=== PATIENT | female | born 1965 | race Caucasian/White ===

== ENCOUNTER → 2020-07-26 15:48 | Outpatient (CLI) | payer OTHER, MEDICAID, SELFPAY ==
[2020-07-26 17:02] LABS: COVID19 -Nasal RAPID Negative (Negative)
[2020-07-26 18:45] LABS: Influenza A - CEPHEID Flu A NEGATIVE (NEGATIVE); Influenza B - CEPHEID Flu B NEGATIVE (NEGATIVE)
== END ==
PROVIDERS: Visit Provider Student in an Organized Health Care Education/Training Program
DX: R05 Cough; R52 Pain, unspecified; Z20.822 Contact with and (suspected) exposure to COVID-19
CPT/HCPCS: 87502; 87635

== ENCOUNTER → 2020-08-01 13:22 | Outpatient (CLI) | payer OTHER, MEDICAID, SELFPAY ==
[2020-08-01 14:22] LABS: COVID19 -Nasal RAPID Negative (Negative)
== END ==
PROVIDERS: Visit Provider Student in an Organized Health Care Education/Training Program
DX: Z20.822 Contact with and (suspected) exposure to COVID-19 (principal)
CPT/HCPCS: 87635

== ENCOUNTER 2022-05-21 06:33 | Emergency (ER) | payer OTHER, MEDICAID, SELFPAY ==
[2022-05-21] VITALS (10 sets, daily range): BP systolic 124–198; BP diastolic 58–89; PULSE 55–77; RESP 15; TEMP 36.2; O2SAT 93–98; BMI 24.1
--- NOTE | 2022-05-21 06:44 | DI.CT.S_ITS ---
PROCEDURE: CT KIDNEY URETER BLADDER (KUB) INDICATIONS: acute onset severe L flank pain TECHNIQUE: Axial sections were acquired from the lung bases to the pubic symphysis. Coronal and sagittal reformats were performed. For radiation dose reduction, the following was used: automated exposure control, adjustment of mA and/or kV according to patient size. COMPARISON: None. FINDINGS: Image quality: Excellent. Lung bases: Unremarkable. Heart: No significant findings. URINARY: Right Kidney: No definite stones. No hydronephrosis. Right Ureter: No hydroureter. Left Kidney: Mild hydronephrosis. Two additional punctate nonobstructing kidney stones. Left Ureter: Obstructing calculus at the left UVJ measuring 0.2 cm, (2/65). Mild hydroureter. Bladder: Decompressed. No stones. ABDOMEN: Liver: Unremarkable. Gallbladder: Not distended. Biliary ducts: Unremarkable. Pancreas: Unremarkable. Spleen: Unremarkable. Adrenal Glands: Unremarkable. Stomach and Bowel: Gastric sleeve. No small bowel obstruction. Diverticulosis. The appendix is not identified. Peritoneum: No abnormal intraperitoneal fluid. No free air. Ventral Wall: No hernia. Abdominal Nodes: No enlarged retroperitoneal or mesenteric lymph nodes. Vessels: Aorta and inferior vena cava are normal in size. Mild atherosclerotic calcifications. PELVIS: Pelvic Organs: Possible uterine fibroid. Pelvic Nodes: Unremarkable. Miscellaneous: No inguinal hernias are seen. Bones: No suspicious lesion. Anterolisthesis of L5 on S1 measuring 0.6 cm. IMPRESSION: 1. Obstructing calculus at the left UVJ measuring 0.2 cm. Mild left hydroureteronephrosis. 2. Additional small nonobstructing left kidney stones x2. This report is concordant with the overnight preliminary interpretation. Dictated by: Moshe Cerda M.D. on 05/21/2022 at 8:06 Approved by: Moshe Cerda M.D. on 05/21/2022 at 8:14
--- NOTE | 2022-05-21 06:44 | ED_ITS ---
HPI - General Adult <Katelyn Trujillo MD - Last Filed: 07/08/22 05:32> General Chief complaint: Abdominal Pain Stated complaint: abd pain left side Time Seen by Provider: 05/21/22 06:38 Source: patient and family Mode of arrival: Wheelchair History of Present Illness HPI narrative: 57-year-old woman with no significant chronic medical problems nor taking any prescribed medications and a history of a single kidney stone 25 years ago presents with acute onset severe left flank pain. She awoke this morning at 5 :15 a.m. and noticed some dull pain to the area that rapidly progressed to 7- 8/10 pain that is severe enough it causes emesis and she is having trouble sitting still secondary to pain. She describes no recent fevers, cough, chills. No headaches, rashes, chest pain, palpitations. Related Data Previous Rx's Medication Instructions Recorded hydrocodone 5 mg-acetaminophen 325 1 tab PO Q4-6H PRN pain #10 tabs 05/21/22 mg tablet ondansetron 4 mg disintegrating 4 mg PO Q6H PRN nausea and 05/21/22 tablet vomiting #10 tabs Allergies Allergy/AdvReac Type Severity Reaction Status Date / Time No Known Drug Allergies Allergy Unverified 08/01/20 13:13 Review of Systems <Katelyn Trujillo MD - Last Filed: 07/08/22 05:32> Review of Systems Narrative: Remainder of complete review of systems is otherwise unremarkable except for that included in the HPI. Patient History <Katelyn Trujillo MD - Last Filed: 07/08/22 05:32> Medical History (Updated 06/28/22 @ 00:00 by ) Kidney stone Social History Smoking Status: Never smoker Smoking Status: Never smoker alcohol intake frequency: a few times a month Substance Use Type: does not use Exam <Katelyn Trujillo MD - Last Filed: 07/08/22 05:32> Initial Vital Signs Initial Vital Signs: Vital Signs Temperature 97.1 F L 05/21/22 06:42 Pulse Rate 77 05/21/22 06:42 Respiratory Rate 15 05/21/22 06:42 Blood Pressure 198/89 H 05/21/22 06:42 Pulse Oximetry 98 05/21/22 06:42 Oxygen Delivery Method Room Air 05/21/22 06:42 General: In significant pain, trying to be cooperative however having difficulty sitting still secondary to pain HEENT: Moist mucous membranes, normal sclera with reactive pupils, Respiratory: Lungs are clear to auscultation, no wheezing no rales no rhonchi. Full and symmetrical air movement Cardiac: Tachycardic, Regular rate and rhythm no murmurs no bruits Abdomen: Soft, nontender, non reproducible left flank pain. Skin: Pale and diaphoretic secondary to pain Neurologic: Grossly neurologically intact with no obvious asymmetries or abnormalities Extremities: No trauma, well perfused Psych: Cooperative, appropriate insight and affect <Tra Sanchez DO - Last Filed: 05/21/22 19:45> Initial Vital Signs Initial Vital Signs: Vital Signs Temperature 97.1 F L 05/21/22 06:42 Pulse Rate 77 05/21/22 06:42 Respiratory Rate 15 05/21/22 06:42 Blood Pressure 198/89 H 05/21/22 06:42 Pulse Oximetry 98 05/21/22 06:42 Oxygen Delivery Method Room Air 05/21/22 06:42 Course <Katelyn Trujillo MD - Last Filed: 07/08/22 05:32> Orders Ordered: Discontinued Medications Hydromorphone HCl (Hydromorphone 0.5 Mg Inj) 0.5 mg IV Q15MIN PRN PRN Reason: Pain, Last Admin: 05/21/22 07:03 Dose: 0.5 mg Documented By: NAT Sodium Chloride (Normal Saline 0.9%) 1,000 mls @ 1,000 mls/hr IV BOLUS ONE Stop: 05/21/22 07:42 Last Infusion: 05/21/22 08:18 Dose: 0 mls/hr Documented By: Admin: 05/21/22 07:00 Dose: 1,000 mls/hr Documented By: NAT Ketorolac Tromethamine (Ketorolac 30 Mg/Ml Vial) 15 mg IV NOW ONE Stop: 05/21/22 06:44 Last Admin: 05/21/22 06:48 Dose: 15 mg Documented By: TIGRE Ondansetron HCl (Ondansetron 4 Mg/2 Ml Inj) 4 mg IV NOW ONE Stop: 05/21/22 06:44 Last Admin: 05/21/22 06:48 Dose: 4 mg Documented By: TIGRE Vital Signs Vital signs: Vital Signs - 8 hr 05/21/22 06:42 05/21/22 07:19 05/21/22 07:30 Temperature 97.1 F L Pulse Rate 77 57 L 59 L Respiratory Rate 15 Blood Pressure 198/89 H Pulse Oximetry 98 94 95 Oxygen Delivery Method Room Air 05/21/22 07:36 05/21/22 07:36 05/21/22 08:00 Temperature Pulse Rate 67 Respiratory Rate Blood Pressure 134/67 135/73 Pulse Oximetry 96 Oxygen Delivery Method 05/21/22 08:00 Temperature Pulse Rate 63 Respiratory Rate Blood Pressure Pulse Oximetry 93 Oxygen Delivery Method <Tra Sanchez DO - Last Filed: 05/21/22 19:45> Orders Ordered: Discontinued Medications Hydromorphone HCl (Hydromorphone 0.5 Mg Inj) 0.5 mg IV Q15MIN PRN PRN Reason: Pain, Last Admin: 05/21/22 07:03 Dose: 0.5 mg Documented By: NAT Sodium Chloride (Normal Saline 0.9%) 1,000 mls @ 1,000 mls/hr IV BOLUS ONE Stop: 05/21/22 07:42 Last Infusion: 05/21/22 08:18 Dose: 0 mls/hr Documented By: Admin: 05/21/22 07:00 Dose: 1,000 mls/hr Documented By: NAT Ketorolac Tromethamine (Ketorolac 30 Mg/Ml Vial) 15 mg IV NOW ONE Stop: 05/21/22 06:44 Last Admin: 05/21/22 06:48 Dose: 15 mg Documented By: TIGRE Ondansetron HCl (Ondansetron 4 Mg/2 Ml Inj) 4 mg IV NOW ONE Stop: 05/21/22 06:44 Last Admin: 05/21/22 06:48 Dose: 4 mg Documented By: TIGRE Vital Signs Vital signs: Vital Signs - 8 hr 05/21/22 06:42 05/21/22 07:19 05/21/22 07:30 Temperature 97.1 F L Pulse Rate 77 57 L 59 L Respiratory Rate 15 Blood Pressure 198/89 H Pulse Oximetry 98 94 95 Oxygen Delivery Method Room Air 05/21/22 07:36 05/21/22 07:36 05/21/22 08:00 Temperature Pulse Rate 67 Respiratory Rate Blood Pressure 134/67 135/73 Pulse Oximetry 96 Oxygen Delivery Method 05/21/22 08:00 Temperature Pulse Rate 63 Respiratory Rate Blood Pressure Pulse Oximetry 93 Oxygen Delivery Method Medical Decision Making <Katelyn Trujillo MD - Last Filed: 07/08/22 05:32> Lab Data 05/21/22 06:50 05/21/22 06:50 Labs: Lab Results 05/21/22 05/21/22 05/21/22 Range/Units 06:50 06:50 08:24 WBC 5.6 (4.5-11.0) X10^3/uL RBC 4.24 (4.0-5.2) X10^6/uL Hgb 13.5 (12.0-16.0) g/dL Hct 40.4 (36-46) % MCV 95.2 (80-100) fL MCH 31.8 (26-34) PG MCHC 33.4 (30-36) % RDW 12.9 (11.6-14.8) % Plt Count 299 (150-400) X10^3/uL Neut % (Auto) 40.2 L (50-75) % Lymph % (Auto) 40.4 H (25-40) % [place] % (Auto) 10.6 (3-14) % Eos % (Auto) 8.0 H (2-4) % Baso % (Auto) 0.8 (0-2) % Neut # (Auto) 2200 (8275-1324) /uL Lymph # (Auto) 2200 (6831-7951) /uL [place] # (Auto) 600 (0-900) /uL Eos # (Auto) 400 (0-450) /uL Baso # (Auto) 0 (0-100) /uL Sodium 140 (137-145) mmol/L Potassium 3.9 (3.4-5.1) mmol/L Chloride 105 (98-107) mmol/L Carbon Dioxide 26 (22-32) mmol/L BUN 16 (7-17) mg/dL Creatinine 0.61 (0.52-1.04) mg/dL Estimated GFR > 60 (>60) mL/min BUN/Creatinine Ratio 26.2 H (6-22) Glucose 115 H (70-100) mg/dL Calcium 9.1 (8.4-10.2) mg/dL Total Bilirubin 0.5 (0.2-1.3) mg/dL AST 38 H (14-36) IU/L ALT 37 H (<35) IU/L Alkaline Phosphatase 111 (38-126) U/L Total Protein 7.7 (6.3-8.2) g/dL Albumin 4.4 (3.5-5.0) g/dL Globulin 3.3 (1.7-4.1) g/dL Albumin/Globulin Ratio 1.3 (1.0-2.8) Urine RBC >100/hpf H (0-5/HPF) Urine WBC 1-5/hpf (0-5/HPF) Ur Squamous Epith Cells 5-10 /hpf H (0-5/HPF) Urine Bacteria Many (>30) H (None) Ur Culture Indicated? Specimen cultured Urine Dip Bedside Urine Glucose Negative Bedside Urine Bilirubin - Negative Bedside Urine Ketone - Negative Urine Specific [place] 1.025 Bedside Urine Occult Blood +++ Bedside Urine pH 6.0 Bedside Urine Protein + 30 Bedside Urine Urobilinogen - Negative Bedside Urine Nitrite - Negative Bedside Urine Leukocytes +/- 15 Esterase Point of care testing: Urine Dip Bedside Urine Glucose Negative Bedside Urine Bilirubin - Negative Bedside Urine Ketone - Negative Urine Specific [place] 1.025 Bedside Urine Occult Blood +++ Bedside Urine pH 6.0 Bedside Urine Protein + 30 Bedside Urine Urobilinogen - Negative Bedside Urine Nitrite - Negative Bedside Urine Leukocytes +/- 15 Esterase MDM Narrative Medical decision making narrative: CC: Acute onset severe left flank pain. New problem, uncertain prognosis potential for severe systemic symptoms Corroborating data: Data collected from: patient, Differential considered: Kidney stone, pyelonephritis, urinary tract infection, acute diverticulitis, bowel obstruction, bowel perforation, Exam documented above, pertinent findings include: Severe left flank pain that is not reproducible with palpation Lab Test results independently reviewed as above. Pertinent findings: Imaging studies independently reviewed: Consultations: Treatments: IV fluid, parenteral Zofran, Toradol Re-evaluations: Discussion: Disposition: see below, along with detailed discharge instructions that have been reviewed with patient as well as indications for ED re-evaluation and additional outpatient follow up <Tra Sanchez DO - Last Filed: 05/21/22 19:45> Lab Data Labs: Lab Results 0205/21/22 05/21/22 Range/Units 06:50 06:50 08:24 WBC 5.6 (4.5-11.0) X10^3/uL RBC 4.24 (4.0-5.2) X10^6/uL Hgb 13.5 (12.0-16.0) g/dL Hct 40.4 (36-46) % MCV 95.2 (80-100) fL MCH 31.8 (26-34) PG MCHC 33.4 (30-36) % RDW 12.9 (11.6-14.8) % Plt Count 299 (150-400) X10^3/uL Neut % (Auto) 40.2 L (50-75) % Lymph % (Auto) 40.4 H (25-40) % [place] % (Auto) 10.6 (3-14) % Eos % (Auto) 8.0 H (2-4) % Baso % (Auto) 0.8 (0-2) % Neut # (Auto) 2200 (2669-6174) /uL Lymph # (Auto) 2200 (0492-6182) /uL [place] # (Auto) 600 (0-900) /uL Eos # (Auto) 400 (0-450) /uL Baso # (Auto) 0 (0-100) /uL Sodium 140 (137-145) mmol/L Potassium 3.9 (3.4-5.1) mmol/L Chloride 105 (98-107) mmol/L Carbon Dioxide 26 (22-32) mmol/L BUN 16 (7-17) mg/dL Creatinine 0.61 (0.52-1.04) mg/dL Estimated GFR > 60 (>60) mL/min BUN/Creatinine Ratio 26.2 H (6-22) Glucose 115 H (70-100) mg/dL Calcium 9.1 (8.4-10.2) mg/dL Total Bilirubin 0.5 (0.2-1.3) mg/dL AST 38 H (14-36) IU/L ALT 37 H (<35) IU/L Alkaline Phosphatase 111 (38-126) U/L Total Protein 7.7 (6.3-8.2) g/dL Albumin 4.4 (3.5-5.0) g/dL Globulin 3.3 (1.7-4.1) g/dL Albumin/Globulin Ratio 1.3 (1.0-2.8) Urine RBC >100/hpf H (0-5/HPF) Urine WBC 1-5/hpf (0-5/HPF) Ur Squamous Epith Cells 5-10 /hpf H (0-5/HPF) Urine Bacteria Many (>30) H (None) Ur Culture Indicated? Specimen cultured Urine Dip Bedside Urine Glucose Negative Bedside Urine Bilirubin - Negative Bedside Urine Ketone - Negative Urine Specific [place] 1.025 Bedside Urine Occult Blood +++ Bedside Urine pH 6.0 Bedside Urine Protein + 30 Bedside Urine Urobilinogen - Negative Bedside Urine Nitrite - Negative Bedside Urine Leukocytes +/- 15 Esterase Point of care testing: Urine Dip Bedside Urine Glucose Negative Bedside Urine Bilirubin - Negative Bedside Urine Ketone - Negative Urine Specific [place] 1.025 Bedside Urine Occult Blood +++ Bedside Urine pH 6.0 Bedside Urine Protein + 30 Bedside Urine Urobilinogen - Negative Bedside Urine Nitrite - Negative Bedside Urine Leukocytes +/- [address] KUB: Radiologist's Impression: [place] [address] CT Scan Report Signed Patient: Nasreen Mora MR#: [id number] : 1965 Acct:[id number] Age/Sex: 57 / F Date of Service: 05/21/22 Loc: ED Accession Number: [id number] ?? Procedure: CT kidney ureter bladder (KUB) Ordering Provider: Katelyn Trujillo MD PROCEDURE:? CT KIDNEY URETER BLADDER (KUB) ? INDICATIONS:? acute onset severe L flank pain ? TECHNIQUE:? Axial sections were acquired from the lung bases to the pubic symphysis.? Coronal and sagittal reformats were performed.? For radiation dose reduction, the following was used: ?automated exposure control, adjustment of mA and/or kV according to patient size.? ? COMPARISON:? None. ? FINDINGS:? Image quality:? Excellent.? ? Lung bases:? Unremarkable.? ? Heart:? No significant findings. ? URINARY: Right Kidney: ? No definite stones.? No hydronephrosis.? Right Ureter:? No hydroureter.? ? Left Kidney:? Mild hydronephrosis.? Two additional punctate nonobstructing ki dney stones. ? Left Ureter:? Obstructing calculus at the left UVJ measuring 0.2 cm, ().? Mild hydroureter.? ? Bladder:? Decompressed.? No stones. ? ? ? ABDOMEN: Liver:? Unremarkable.? ? Gallbladder:? Not distended.? ? Biliary ducts:? Unremarkable.? ? Pancreas:? Unremarkable.? ? Spleen:? Unremarkable.? ? Adrenal Glands:? Unremarkable.? ? ? Stomach and Bowel:? Gastric sleeve.? No small bowel obstruction.? Diverticulosis.? The appendix is not identified. Peritoneum:? No abnormal intraperitoneal fluid.? No free air.? ? Ventral Wall: ? No hernia.? Abdominal Nodes:? No enlarged retroperitoneal or mesenteric lymph nodes.? Vessels:? Aorta and inferior vena cava are normal in size.? Mild atherosclerotic calcifications.? ? PELVIS: Pelvic Organs:? Possible uterine fibroid.? ? Pelvic Nodes: Unremarkable. Miscellaneous: No inguinal hernias are seen. ? ? ? Bones:? No suspicious lesion.? Anterolisthesis of L5 on S1 measuring 0.6 cm. ? IMPRESSION:? 1. Obstructing calculus at the left UVJ measuring 0.2 cm.? Mild left hydroureteronephrosis.? ? 2. Additional small nonobstructing left kidney stones x2. ? ? This report is concordant with the overnight preliminary interpretation. ? Dictated by: Moshe Cerda M.D. on 05/21/2022 at 8:06 ? ? Approved by: Moshe Cerda M.D. on 05/21/2022 at 8:14?? MDM Narrative Medical decision making narrative: CC: Acute onset severe left flank pain. New problem, uncertain prognosis potential for severe systemic symptoms Corroborating data: Data collected from: patient, Differential considered: Kidney stone, pyelonephritis, urinary tract infection, acute diverticulitis, bowel obstruction, bowel perforation, Exam documented above, pertinent findings include: Severe left flank pain that is not reproducible with palpation Lab Test results independently reviewed as above. Pertinent findings: Imaging studies independently reviewed: Consultations: Treatments: IV fluid, parenteral Zofran, Toradol Re-evaluations: Discussion: Disposition: see below, along with detailed discharge instructions that have been reviewed with patient as well as indications for ED re-evaluation and additional outpatient follow up Dr sanchez: Received turned over reviewed patient's history and physical exam. Assumed care patient. Patient was seen by social work. A plan was in place for follow-up and discharged home. I did refill her gabapentin. Patient will return for worsening symptoms. Discharge Plan Departure Patient Disposition: Home Clinical Impression: Renal colic on left side Instructions: Kidney Stones -- Adult Activity Restrictions/Additional Instructions: Recommend that you stay hydrated. Use the pain medicine and nausea medicine as needed. Return to the emergency department for any new or worsening symptoms. Prescriptions: New ondansetron 4 mg tablet,disintegrating 4 mg PO Q6H PRN (Reason: nausea and vomiting) Qty: 10 0RF hydrocodone-acetaminophen 5-325 mg tablet 1 tab PO Q4-6H PRN (Reason: pain) Qty: 10 0RF Referrals: Miscellaneous,Doctor, MD [Primary Care Provider] - Stand Alone Forms: Patient Portal/API
[2022-05-21] MEDS: ONDANSETRON 4 MG/2 ML INJ IV (06:48)
[2022-05-21] MEDS: KETOROLAC 30 MG/ML VIAL 15 MG IV (06:48)
[2022-05-21] MEDS: SODIUM CHLORIDE 0.9% 1,000 ML 1000 ML IV (07:00)
[2022-05-21] MEDS: HYDROMORPHONE 0.5 MG INJ IV (07:03)
[2022-05-21 07:04] LABS: Add Manual Diff / Slide Review NO; Basophils Absolute Auto 0 /uL (0-100); Basophils Percent Auto 0.8 % (0-2); Eosinophils Absolute Auto 400 /uL (0-450); Hematocrit 40.4 % (36-46); Hemoglobin 13.5 g/dL (12.0-16.0); Lymphocytes Absolute Auto 2200 /uL (1100-4500); Lymphocytes Percent Auto 40.4 % (25-40); Mean Corpuscular HGB Conc 33.4 % (30-36); Mean Corpuscular Hemoglobin 31.8 PG (26-34); Mean Corpuscular Volume 95.2 fL (80-100); Monocytes Absolute Auto 600 /uL (0-900); Monocytes Percent Auto 10.6 % (3-14); Neutrophils Absolute Auto 2200 /uL (1500-7000); Neutrophils Percent Auto 40.2 % (50-75); Platelet Count 299 X10^3/uL (150-400); Red Blood Cell Count 4.24 X10^6/uL (4.0-5.2); Red Cell Distribution Width 12.9 % (11.6-14.8); White Blood Cell Count 5.6 X10^3/uL (4.5-11.0)
[2022-05-21 07:11] LABS: Alanine Aminotransferase 37 IU/L (<35); Albumin 4.4 g/dL (3.5-5.0); Albumin Globulin Ratio 1.3 (1.0-2.8); Alkaline Phosphatase 111 U/L (38-126); Aspartate Aminotransferase 38 IU/L (14-36); BUN Creatinine Ratio 26.2 (6-22); Bilirubin Total 0.5 mg/dL (0.2-1.3); Blood Urea Nitrogen 16 mg/dL (7-17); Calcium 9.1 mg/dL (8.4-10.2); Carbon Dioxide 26 mmol/L (22-32); Chloride 105 mmol/L (98-107); Estimated Glomerular Filt Rate > 60 mL/min (>60); Globulin 3.3 g/dL (1.7-4.1); Glucose 115 mg/dL (70-100); HEMOLYSIS < 15 (0-50); Potassium 3.9 mmol/L (3.4-5.1); Sodium 140 mmol/L (137-145); Total Protein 7.7 g/dL (6.3-8.2)
[2022-05-21 09:36] LABS: Bacteria Urine Many (>30); RBC Urine >100/HPF (0-5/HPF); Squamous Epithelial Cell Urine 5-10 /HPF (0-5/HPF); WBC Urine 1-5/HPF (0-5/HPF)
[2022-05-21 09:37] LABS: Culture Indicated Urine Specimen Cultured
== END 2022-05-21 10:11 | disposition home or self-care (01) ==
PROVIDERS: Emergency Medicine; Emergency Provider Emergency Medicine
DX: N23 Unspecified renal colic (principal)
CPT/HCPCS: 74176; 80053; 81003; 81015; 85025; 87086; 96361; 96374; 96375; 99283; 99284; J1170; J1885; J2405

== ENCOUNTER 2022-06-12 19:50 | Emergency (ER) | payer OTHER, MEDICAID, SELFPAY ==
[2022-06-12 20:05] VITALS: BP 174/77; PULSE 108; RESP 18; TEMP 37.7; O2SAT 97; BMI 25.2
[2022-06-12 20:29] LABS: COVID19 -Nasal RAPID POSITIVE (Negative)
--- NOTE | 2022-06-12 21:03 | DI.RAD.S_ITS ---
PROCEDURE: XR CHEST 2V INDICATIONS: covid +, fever, cough TECHNIQUE: 2 views of the chest were acquired. COMPARISON: None. FINDINGS: Surgical changes and devices: None. Lungs and pleura: Lungs are clear. No pleural effusions or pneumothorax. Mediastinum: Mediastinal contours are normal. Heart size is normal. Bones and chest wall: No suspicious bony abnormalities. Soft tissues appear unremarkable. IMPRESSION: 1. No acute cardiopulmonary disease. Dictated by: Gómez Valentine M.D. on 06/12/2022 at 21:47 Approved by: Gómez Valentine M.D. on 06/12/2022 at 21:47
--- NOTE | 2022-06-12 23:45 | PC.NURSE ---
c/o generalized malaise with fever has not taken anything for the fever
== END 2022-06-13 00:10 | disposition left against medical advice (07) ==
PROVIDERS: Emergency Provider Emergency Medicine
DX: U07.1 COVID-19 (principal)
CPT/HCPCS: 71046; 87635; 99281; C9803

== ENCOUNTER → 2023-08-11 09:41 | Outpatient (CLI) | payer OTHER, MEDICAID, SELFPAY ==
--- NOTE | 2023-08-11 09:43 | DI.CT.S_ITS ---
PROCEDURE: CT LUNG LOW DOSE SCREENING INDICATIONS: lung cancer screen TECHNIQUE: Noncontrast 2.0-2.5 mm thick sections acquired from the pulmonary apices to the posterior costophrenic angles. 7 mm thick axial MIP, and 5 mm coronal and sagittal reformats were then acquired. For radiation dose reduction, the following was used: automated exposure control, adjustment of mA and/or kV according to patient size. COMPARISON: None. FINDINGS: Image quality: Diagnostic. Lower Neck: No enlarged lymph nodes. Thyroid: No thyroid nodules which require sonographic follow up, per consensus guidelines. Axillae: No enlarged lymph nodes. Chest Wall: Unremarkable. Bones: Unremarkable. Lungs and Pleura: No pneumothorax or pleural effusions. There is mild scarring at the bilateral apices. A 4 mm pulmonary nodule is present at the right apex (series 3/image 50). Heart: Heart size is normal. No pericardial effusion. Thoracic Vessels: The aorta and pulmonary arteries demonstrate normal size. Mediastinum and [place]: No enlarged lymph nodes. Esophagus: No wall thickening. No hiatal hernia. Upper Abdomen: Visualized upper abdomen solid organs and bowel loops appear normal. IMPRESSION: No suspicious pulmonary nodules. LUNG-RADS 1; continued annual screening, if eligible. Clinically Significant Non-pulmonary Findings: None. Dictated by: Deonna Saunders M.D. on 08/11/2023 at 14:39 Approved by: Deonna Saunders M.D. on 08/11/2023 at 14:42
== END ==
PROVIDERS: PCP Family Medicine; Referring Provider Family Medicine; Visit Provider Family Medicine
DX: F17.210 Nicotine dependence, cigarettes, uncomplicated (principal); Z12.2 Encounter for screening for malignant neoplasm of respiratory organs
CPT/HCPCS: 71271

== ENCOUNTER → 2024-02-03 08:51 | Outpatient (CLI) | payer OTHER, MEDICAID, SELFPAY ==
[2024-02-03 09:53] LABS: Add Manual Diff / Slide Review NO; Basophils Absolute Auto 0 /uL (0-100); Basophils Percent Auto 0.5 % (0-2); Eosinophils Absolute Auto 100 /uL (0-450); Eosinophils Percent Auto 1.5 % (2-4); Hematocrit 41.1 % (36-46); Hemoglobin 13.9 g/dL (12.0-16.0); Lymphocytes Absolute Auto 1000 /uL (1100-4500); Mean Corpuscular HGB Conc 33.9 % (30-36); Mean Corpuscular Hemoglobin 33.6 PG (26-34); Monocytes Absolute Auto 300 /uL (0-900); Monocytes Percent Auto 8.3 % (3-14); Neutrophils Absolute Auto 2400 /uL (1500-7000); Neutrophils Percent Auto 63.7 % (50-75); Platelet Count 256 X10^3/uL (150-400); Red Blood Cell Count 4.15 X10^6/uL (4.0-5.2); Red Cell Distribution Width 12.5 % (11.6-14.8); White Blood Cell Count 3.8 X10^3/uL (4.5-11.0)
[2024-02-03 10:20] LABS: Alanine Aminotransferase 39 IU/L (<35); Albumin 4.4 g/dL (3.5-5.0); Albumin Globulin Ratio 1.6 (1.0-2.8); Alkaline Phosphatase 105 U/L (38-126); Aspartate Aminotransferase 44 IU/L (14-36); BUN Creatinine Ratio 26.9 (6-22); Bilirubin Total 0.6 mg/dL (0.2-1.3); Blood Urea Nitrogen 18 mg/dL (7-17); Calcium 9.8 mg/dL (8.4-10.2); Carbon Dioxide 31 mmol/L (22-32); Chloride 104 mmol/L (98-107); Cholesterol 216 mg/dL (140-199); Estimated Glomerular Filt Rate > 60 mL/min (>60); Globulin 2.7 g/dL (1.7-4.1); Glucose 95 mg/dL (70-100); HDL Cholesterol 100 mg/dL (40-60); HEMOLYSIS < 15 (0-50); LDL Cholesterol Calculated 104 mg/dL (<100); Potassium 4.9 mmol/L (3.4-5.1); Sodium 140 mmol/L (137-145); Total Protein 7.1 g/dL (6.3-8.2); Triglycerides 58 mg/dL (35-150)
== END ==
LOC: LAB 08:53
PROVIDERS: PCP Family Medicine; Referring Provider Family Medicine; Visit Provider Family Medicine
DX: Z13.220 Encounter for screening for lipoid disorders (principal); Z00.00 Encounter for general adult medical examination without abnormal findings; K52.9 Noninfective gastroenteritis and colitis, unspecified; R63.4 Abnormal weight loss
CPT/HCPCS: 36415; 80053; 80061; 85025

== ENCOUNTER → 2024-02-14 06:43 | Outpatient (CLI) | payer OTHER, MEDICAID, SELFPAY ==
--- NOTE | 2024-02-14 06:44 | DI.US.S_ITS ---
PROCEDURE: US ABDOMEN LIMITED INDICATIONS: ELEVATED LIVER ENZYMES TECHNIQUE: Real-time focused scanning was performed of the abdomen, with image documentation. COMPARISON: None. FINDINGS: Liver measures 14 cm without significant sonographic abnormality. Unremarkable gallbladder and biliary system. CBD measures 5 mm. Unremarkable visualized pancreas. Small cortical right renal simple appearing cyst measures 7 mm. IMPRESSION: No significant sonographic abnormalities in the right upper quadrant. Dictated by: Jose Antonio Holden M.D. on 02/14/2024 at 9:23 Approved by: Jose Antonio Holden M.D. on 02/14/2024 at 9:24
== END ==
PROVIDERS: PCP Family Medicine; Referring Provider Family Medicine; Visit Provider Family Medicine
DX: R74.8 Abnormal levels of other serum enzymes (principal); E78.00 Pure hypercholesterolemia, unspecified; N28.1 Cyst of kidney, acquired
CPT/HCPCS: 76705

== ENCOUNTER → 2024-05-07 12:58 | Outpatient (CLI) | payer OTHER, MEDICAID, SELFPAY ==
[2024-05-07 13:22] LABS: Hematocrit 40.4 % (36-46); Hemoglobin 13.6 g/dL (12.0-16.0); Mean Corpuscular HGB Conc 33.7 % (30-36); Mean Corpuscular Hemoglobin 33.7 PG (26-34); Mean Corpuscular Volume 100.1 fL (80-100); Platelet Count 298 X10^3/uL (150-400); Red Blood Cell Count 4.04 X10^6/uL (4.0-5.2); Red Cell Distribution Width 12.9 % (11.6-14.8); White Blood Cell Count 5.2 X10^3/uL (4.5-11.0)
[2024-05-07 13:44] LABS: Appearance Urine UA CLEAR; Bilirubin Urine UA NEGATIVE (NEGATIVE); Color Urine UA YELLOW; Glucose Urine UA NEGATIVE (Negative); Ketones Urine UA NEGATIVE (NEGATIVE); Leukocyte Esterase Urine UA NEGATIVE (NEGATIVE); Nitrite Urine UA NEGATIVE (Negative); Occult Blood Urine UA TRACE-INTACT (Negative); Protein Urine UA NEGATIVE (Negative); Specific Gravity Urine UA >=1.030 (1.000-1.035); Urobilinogen Urine UA 0.2 E.U./dL (0.2); pH Urine UA 5.5 (4.5-8.0)
[2024-05-07 13:49] LABS: Chloride 107 mmol/L (98-107); HEMOLYSIS < 15 (0-50); Potassium 4.3 mmol/L (3.4-5.1); Sodium 140 mmol/L (137-145)
[2024-05-07 13:50] LABS: Alanine Aminotransferase 36 IU/L (<35); Albumin 4.6 g/dL (3.5-5.0); Albumin Globulin Ratio 1.6 (1.0-2.8); Alkaline Phosphatase 107 U/L (38-126); Aspartate Aminotransferase 43 IU/L (14-36); BUN Creatinine Ratio 31.9 (6-22); Bilirubin Total 0.4 mg/dL (0.2-1.3); Blood Urea Nitrogen 23 mg/dL (7-17); Calcium 9.7 mg/dL (8.4-10.2); Carbon Dioxide 26 mmol/L (22-32); Estimated Glomerular Filt Rate > 60 mL/min (>60); Globulin 2.9 g/dL (1.7-4.1); Glucose 104 mg/dL (70-100); Total Protein 7.5 g/dL (6.3-8.2)
[2024-05-07 13:54] LABS: Bacteria Urine Occasional (0-1); Culture Indicated Urine Cult Not Indicated; RBC Urine 1-5/HPF (0-5/HPF); Squamous Epithelial Cell Urine 1-5 /HPF (0-5/HPF); Urine Volume 10mL (spun); WBC Urine 1-5/HPF (0-5/HPF)
[2024-05-07 13:58] LABS: Prealbumin 28.9 mg/dL (17.6-36.0)
== END ==
PROVIDERS: PCP Family Medicine; Referring Provider Surgery; Visit Provider Surgery
DX: R19.7 Diarrhea, unspecified (principal); R35.0 Frequency of micturition; R34 Anuria and oliguria; R39.9 Unspecified symptoms and signs involving the genitourinary system
CPT/HCPCS: 36415; 80053; 81001; 84134; 85027

== ENCOUNTER → 2024-05-11 11:21 | Outpatient (CLI) | payer OTHER, SELFPAY ==
--- NOTE | 2024-05-11 11:23 | DI.RAD.S_ITS ---
PROCEDURE: XR KUB INDICATIONS: Pelvic/urinary pain, hx of kidney stones TECHNIQUE: One view of the abdomen acquired. COMPARISON: [facility], CT, CT LUNG LOW DOSE SCREENING, 08/11/2023, 9:49. FINDINGS: Surgical changes and devices: There is prior gastric sleeve surgery with postsurgical changes seen in left upper quadrant. Bowel: Bowel gas pattern is nonobstructive. No gross free air. Soft tissues: No suspicious abdominal calcifications. Visualized solid organ contours appear normal in size. Bones: No suspicious bony lesions. IMPRESSION: Postsurgical changes in left upper quadrant. No definite renal calcification is seen. No evidence of bowel obstruction or gross free air. Dictated by: Ahsan Holloway M.D. on 05/11/2024 at 14:30 Approved by: Ahsan Holloway M.D. on 05/11/2024 at 14:31
== END ==
PROVIDERS: PCP Family Medicine; Referring Provider Family Medicine; Visit Provider Family Medicine
DX: R30.9 Painful micturition, unspecified (principal); R39.89 Other symptoms and signs involving the genitourinary system; Z87.442 Personal history of urinary calculi; Z98.84 Bariatric surgery status
CPT/HCPCS: 74018

== ENCOUNTER 2024-06-11 09:48 | Day surgery (SDC) | payer OTHER, SELFPAY ==
--- NOTE | 2024-06-11 | PATH_ITS ---
[facility] Accession Number: [id number] No. of containers..05 Tissue . 01 Material submitted: . PART A: duodenum - DUODENUM PART B: stomach - ANTRUM PART C: esophagus, E-G Junction - GE JUNCTION PART D: colon - PROXIMAL COLON PART E: colon - DISTAL COLON . 01 Diagnosis: A. DUODENUM, BIOPSY: Histologically unremarkable duodenal mucosa. Negative for villous blunting and increased intraepithelial lymphocytes. . B. STOMACH, ANTRUM, BIOPSY: Antral mucosa with reactive gastropathy and mild chronic inflammation. Negative for Helicobacter organisms and intestinal metaplasia. . C. GASTROESOPHAGEAL JUNCTION, BIOPSY: Squamocolumnar junctional mucosa with reactive changes and increased intraepithelial eosinophils (up to 12 per high-power field), see comment. Negative for intestinal metaplasia. . D. PROXIMAL COLON: Histologically unremarkable colonic mucosa. Negative for active colitis, granulomas, dysplasia, and malignancy. . E. DISTAL COLON: Histologically unremarkable colonic mucosa. Negative for active colitis, granulomas, dysplasia, and malignancy. [facility] 06/15/2024 1743 Local . 01 Comment: B. Immunohistochemistry for Helicobacter pylori is performed and is negative. . C. Regarding the increased intraepithelial eosinophils, there is considerable overlap between reflux changes and eosinophilic esophagitis, and increased eosinophils can be seen in the distal esophagus, particularly in the setting of reflux-related changes. In this case, the eosinophils with the reactive changes are favored to represent reflux esophagitis; however, clinical and endoscopic correlation is recommended. . Technical Note: The immunohistochemical stains reported were performed with [facility] controls [facility] ([address], [facility] [address]). This test was developed and performance characteristics validated by [employer] It has not been cleared or approved by the Food and Drug Administration. . 01 Electronically signed: . Enid Murdock DO, Pathologist NPI- [id number] . 01 Gross description: . A. Received in formalin with two patient identifiers and duodenum, are three rose soft tissue fragments 0.2 to 0.5 cm in greatest dimension. Submitted in cassette A1. B. Received in formalin with two patient identifiers and antrum, are two rose soft tissue fragments 0.4 to 0.5 cm in greatest dimension. Submitted in cassette B1. C. Received in formalin with two patient identifiers and GE junction, are two rose soft tissue fragments 0.4 to 0.5 cm in greatest dimension. Submitted in cassette C1. D. Received in formalin with two patient identifiers and proximal colon, are three rose soft tissue fragments all measuring 0.3 cm in greatest dimension. Submitted in cassette D1. E. Received in formalin with two patient identifiers and distal colon, are two rose soft tissue fragments 0.3 to 0.5 cm in greatest dimension. Submitted in cassette E1. ([id number]) /DELILAH 06/12/2024 1137 Local . 01 Pathologist provided ICD-10: K29.70 . 01 CPT . 979637, 896832, 457101, 686926, 459379, [id number] Specimen Comment: A courtesy copy of this report has been sent to [phone] Performed at: [address] [address], [place], [place] [id number] MD Gómez Laureano MD Phone: [phone]
[2024-06-11] MEDS: LACTATED RINGERS 1,000 ML 42 ML IV (10:22)
--- NOTE | 2024-06-11 10:49 | P.HP_ITS ---
History of Present Illness History of Present Illness Date Patient Seen: 06/11/24 Time Patient Seen: 10:49 Chief complaint: [facility] [place] Narrative: Nasreen is a 59-year-old woman here for an EGD and colonoscopy for chronic diarrhea. See the office note from February for details. [facility] Medical History Depression (~1979) Chicken pox (~1971) Hearing decreased Kidney stone Surgical History Anesthesia H/O gastric sleeve (~11/2021) Family History Father AIDS Mother History of heart disease Grandfather History of heart disease Grandmother History of heart disease Grandfather History of heart disease Grandmother History of emphysema Social History Smoking Status: Former smoker Meds Home Medications and Allergies Home Medications Medication Instructions Recorded Confirmed Type biotin PO 07/26/23 05/11/24 History multivitamin 1 tab PO DAILY 07/26/23 05/11/24 History Allergies Allergy/AdvReac Type Severity Reaction Status Date / Time No Known Drug Allergies Allergy Verified 05/11/24 07:43 Exam Const General: No acute distress Resp Effort & Inspection: normal respiratory effort Assessment & Plan Assessment and plan (1) Diarrhea: Qualifiers: Diarrhea type: unspecified type Qualified Code(s): R19.7 - Diarrhea, unspecified Status: Acute Plan EGD and colonoscopy with biopsies Time-Based Coding :: [TOTAL MINUTES] spent with patient and on the chart (including review of chart, obtaining history, exam, reviewing outside data, placing orders, documenting exam and treatment plan, and counseling patient) on [DATE]. [employer] Document charge(s): No
[2024-06-11 11:33] VITALS: BP 118/56; PULSE 77; RESP 15; TEMP 36.2; O2SAT 96
--- NOTE | 2024-06-11 11:36 | PM.OP.EC ---
Operative Date/Time/Diagnoses Date of procedure: 06/11/24 Time of procedure: 11:36 Pre-op diagnosis: Diarrhea Post-op diagnosis: same Procedure & Clinicians Study performed: EGD and colonoscopy Same procedure as scheduled: Yes Surgeon: Zachary Robin Procedure Notes Procedure in detail: Surgeon: Zacahry Robin MD Anesthesia: Dania Jiang DO Procedure in detail: A timeout was performed. A bite blocked was placed and monitors were attached to the patient. The patient was positioned in the left lateral decubitus position. Sedation was administered. Once the patient was sedated the endoscope was inserted through the bite block and passed through the esophagus and stomach and into the duodenum. No obvious abnormalities were identified. We took random biopsies of the duodenal mucosa with cold forceps. We then withdrew the scope into the stomach. There was some mild antritis. We took random biopsies of the antrum with cold forceps. The stomach was quite narrow consistent with her history of a sleeve gastrectomy. The endoscope was retroflexed and no hiatal hernia was seen. The endoscope was straightned and withdrawn into the esophagus. There was a single tongue salmon-colored mucosa at the GE junction and biopsies were taken with cold forceps. EGD findings: Mild antritis, evidence of a prior sleeve gastrectomy, a single tongue of salmon-colored mucosa at the GE junction Next we repositioned the patient for a colonoscopy. A digital rectal exam was performed and was normal. The colonoscope was inserted and advanced to the cecum. The appendiceal orifice was identified and photographed. The scope was slowly withdrawn over greater than 6 minutes. No gross abnormalities were identified. We took random biopsies of the proximal colon and distal colon with cold forceps. The scope was retroflexed in the rectum and no other abnormalities were seen. Colonoscopy findings: Normal colon Total procedural EBL: 5 mL Scope withdrawal time: 11 minutes Sedation minutes: 31 minutes Post-procedure Disposition: PACU
[2024-06-11 11:38] VITALS: BP 121/69; PULSE 70; RESP 15; O2SAT 95
[2024-06-11 11:42] VITALS: BP 126/76; PULSE 63; RESP 16; TEMP 36.2; O2SAT 96
[2024-06-11 11:47] VITALS: BP 125/78; PULSE 66; RESP 15; O2SAT 97
[2024-06-11 11:51] VITALS: BP 127/86; PULSE 67; RESP 16; TEMP 36.2; O2SAT 96
== END 2024-06-11 12:17 | disposition home or self-care (01) ==
PROVIDERS: PCP Family Medicine; Referring Provider Surgery; Visit Provider Surgery
PROC: 0DJ08ZZ Inspection of Upper Intestinal Tract, Via Natural or Artificial Opening Endoscopic (ICD-10-PCS; CPT 45380; principal; 2024-06-11 11:15)
PROC: 0DJD8ZZ Inspection of Lower Intestinal Tract, Via Natural or Artificial Opening Endoscopic (ICD-10-PCS; CPT 45378; 2024-06-11 11:15)
DX: R19.7 Diarrhea, unspecified (principal); Z98.84 Bariatric surgery status; Z87.891 Personal history of nicotine dependence; K29.50 Unspecified chronic gastritis without bleeding; K31.9 Disease of stomach and duodenum, unspecified
CPT/HCPCS: 45380; 43239; J2704

== ENCOUNTER → 2024-06-18 13:15 | Outpatient (CLI) | payer OTHER, SELFPAY ==
[2024-06-18 14:41] LABS: Clostridium Difficile Tox PCR Negative for C. diff (Negative)
[2024-06-19 10:42] LABS: Fecal Immunochemical Test Negative (Negative)
== END ==
LOC: LAB 13:16
PROVIDERS: PCP Family Medicine; Referring Provider Family Medicine; Visit Provider Family Medicine
DX: Z12.11 Encounter for screening for malignant neoplasm of colon (principal); R19.7 Diarrhea, unspecified
CPT/HCPCS: 82274; 87045; 87205; 87493